=== PATIENT | female | born 1990 | race Caucasian/White ===

== ENCOUNTER 2018-07-27 21:22 | Emergency (ER) | payer MEDICAID ==
[2018-07-27] MEDS: Ketorolac 60 MG/2 ML SDV IM STA (22:31)
--- NOTE | 2018-07-27 22:31 | EDM.PDOC ---
ED HPI GENERAL MEDICAL PROBLEM - General Chief Complaint: Abdominal Pain Stated Complaint: HEAVY BLEEDING AND CRAMPS Time Seen by Provider: 07/27/18 21:22 Source of Information: Reports: Patient, Family History Limitations: Reports: No Limitations - History of Present Illness INITIAL COMMENTS - FREE TEXT/NARRATIVE: 28 y.o.w.galina. came to the ED due to vag bleed (spotting) with pelvic pain, starting this morning 2 weeks after she had a miscarriage and underwent a ultrasound guided D&CC on 07/15/2018 at [facility]. There was no complication during the D&C. No N/V/D, no Trauma. No other acute medical issues. 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 Lower abdomen Pain Score (Numeric/FACES): 7 - Related Data Allergies Allergy/AdvReac Type Severity Reaction Status Date / Time benzonatate Allergy Anaphylactic Verified 12/03/15 12:50 [From Tesdania Bailey] Shock fluoxetine [From Prozac] Allergy Airway Verified 07/27/18 21:30 Tightness morphine Allergy Vomiting Verified 11/15/15 18:27 Home Meds: Home Meds Gabapentin 600 mg PO DAILY 04/26/15 [History] Ziprasidone HCl [Geodon] 60 mg PO BEDTIME 04/26/15 [History] Triamcinolone Acetonide [Triamcinolone Acetonide 0.1% Crm] 1 applic TOP TID PRN 05/16/15 [History] clonazePAM [Klonopin] 0.25 mg PO BID PRN 12/03/15 [History] Hydrocodone/Acetaminophen [[place] 5-325] 1 tab PO ASDIRECTED PRN 01/18/16 [ History] Clindamycin HCl [Cleocin] 300 mg BID 07/27/18 [History] Methylphenidate [Concerta] 54 mg DAILY 07/27/18 [History] Methylphenidate [Concerta] 54 mg PO DAILY 07/27/18 [History] Past Medical History - Past Health History Medical/Surgical History: Denies Medical/Surgical History Respiratory History: Reports: Asthma Other Respiratory History: pt states was diagnosed with asthma as a kid but was never on any medication. 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: Endometrial Ablation, Endometriosis, Musculoskeletal History: Reports: Fracture Other Musculoskeletal History: hx fx L wrist Neurological History: Reports: Migraines Psychiatric History: Reports: Anxiety, Bipolar, Panic Attack, Psych Hospitalization(s), PTSD, Suicide Attempt Dermatologic History: Reports: Eczema - Infectious Disease History Infectious Disease History: Reports: Chicken Pox - Past Surgical History HEENT Surgical History: Reports: Oral Surgery GI Surgical History: Reports: Appendectomy, Colonoscopy Female Surgical History: Reports: Cervical Conization, Cervical Cryotherapy, D&C, Dilitation & Evacuation, Endometrial Ablation, Other (See Below) Other Female Surgeries/Procedures: [id number] Musculoskeletal Surgical History: Reports: None Social & Family History - Family History Family Medical History: Noncontributory - Tobacco Use Smoking Status *Q: Current Every Day Smoker Years of Tobacco use: 10 Packs/Tins Daily: 1 - Caffeine Use Caffeine Use: Reports: Coffee, Soda - Recreational Drug Use Recreational Drug Use: No ED ROS GENERAL - Review of Systems Review Of Systems: See Below Constitutional: Reports: No Symptoms HEENT: Reports: No Symptoms Respiratory: Reports: No Symptoms Cardiovascular: Reports: No Symptoms Endocrine: Reports: No Symptoms GI/Abdominal: Reports: No Symptoms : Reports: Pain, Other (Vag bleed) Musculoskeletal: Reports: No Symptoms Skin: Reports: No Symptoms Neurological: Reports: No Symptoms Psychiatric: Reports: No Symptoms Hematologic/Lymphatic: Reports: No Symptoms Immunologic: Reports: No Symptoms ED EXAM - Physical Exam Exam: See Below General Appearance: Alert, WD/WN, Mild Distress Eye Exam: Bilateral Eye: Normal Inspection Ears: Normal External Exam Nose: Normal Inspection Throat/Mouth: Normal Inspection, Normal Lips, Normal Voice, No Airway Compromise Head: Atraumatic, Normocephalic Neck: Normal Inspection, Supple, Non-Tender, Full Range of Motion Respiratory/Chest: No Respiratory Distress, Lungs Clear, Normal Breath Sounds, Chest Non-Tender Cardiovascular: Normal Peripheral Pulses Course - Vital Signs Text/Narrative:: 28 y.o.w.f. came to the ED due to vag bleed (spotting) with pelvic pain, starting this morning 2 weeks after she had a miscarriage and underwent a ultrasound guided D&CC on 07/15/2018 at [facility]. There was no complication during the D&C. No N/V/D, no Trauma. No other acute medical issues. BP 126/61 Pulse 81 RR 18 Pulse ox 100% on RA Temp 36.1 PE: WNWD F W F in with Vag spotting and pelvic pain 2 weeks after a D&C Imaging: U/S not available Labs: CBC. BMP Nl HCG 507 Impression: Vaginal Bleed after D&C Tx: Toradol 60 mg im 10.28 pm Consultation: Dr. Jenkins, AUTOMATIC MACHINE ATTENDANT [facility]: D&C bleed after the procedure up to 4 weeks. As long the bleed is not longer/stronger then a period , nothing to worry about. Motrin for pain is fine Reexam: Pain subsided and so did the vag spotting Plan: D/C with instructions Last Recorded V/S: Last Vital Signs Temp 36.9 C 07/27/18 21:26 Pulse 78 07/27/18 22:55 Resp 18 07/27/18 22:55 BP 106/53 L 07/27/18 22:55 Pulse Ox 99 07/27/18 22:55 - Orders/Labs/Meds Labs: Laboratory Tests 07/27/18 07/27/18 07/27/18 Range/Units 22:00 22:00 22:00 WBC 9.9 (4.5-12.0) X10-3/uL RBC 4.53 (3.23-5.20) x10(6)uL Hgb 13.8 (11.5-15.5) g/dL Hct 39.7 (30.0-51.3) % MCV 87.6 (80-96) fL MCH 30.5 (27.7-33.6) pg MCHC 34.8 (32.2-35.4) g/dL RDW 11.9 (11.5-15.5) % Plt Count 254 (125-369) X10(3)uL MPV 7.2 L (7.4-10.4) fL Neut % (Auto) 57.5 (46-82) % Lymph % (Auto) 33.1 (13-37) % [place] % (Auto) 8.2 (4-12) % Eos % (Auto) 1 (1.0-5.0) % Baso % (Auto) 0 (0-2) % Neut # (Auto) 5.7 (1.6-8.3) # Lymph # (Auto) 3.3 (0.6-5.0) # [place] # (Auto) 0.8 (0.0-1.3) # Eos # (Auto) 0.1 (0.0-0.8) # Baso # (Auto) 0.0 (0.0-0.2) # PT 9.9 (8.7-11.1) INR 1.02 (0.89-1.13) Sodium (135-145) mmol/L Potassium (3.5-5.3) mmol/L Chloride (100-110) mmol/L Carbon Dioxide (21-32) mmol/L BUN (7-18) mg/dL Creatinine (0.55-1.02) mg/dL Est Cr Clr Drug Dosing mL/min Estimated GFR (MDRD) (>60) BUN/Creatinine Ratio (9-20) Glucose (80-116) mg/dL Calcium (8.6-10.2) mg/dL HCG, Quant (<5) mIU/mL Urine Color Yellow (YELLOW) Urine Appearance Clear (CLEAR) Urine pH 7.0 H (5.0-6.5) Ur Specific [place] 1.020 (1.010-1.025) Urine Protein Negative (NEGATIVE) mg/dL Urine Glucose (UA) Normal (NEGATIVE) mg/dL Urine Ketones Negative (NEGATIVE) mg/dL Urine Occult Blood Large H (NEGATIVE) Urine Nitrite Negative (NEGATIVE) Urine Bilirubin Negative (NEGATIVE) Urine Urobilinogen Normal (NEGATIVE) mg/dL Ur Leukocyte Esterase Negative (NEGATIVE) Urine RBC >100 H (0) Urine WBC 0-5 (0) Ur Squamous Epith Cells Few H (NS,R,O) Urine Bacteria Few H (NS) Urine Mucus Few H (NS) 07/27/18 07/27/18 Range/Units 22:00 22:00 WBC (4.5-12.0) X10-3/uL RBC (3.23-5.20) x10(6)uL Hgb (11.5-15.5) g/dL Hct (30.0-51.3) % MCV (80-96) fL MCH (27.7-33.6) pg MCHC (32.2-35.4) g/dL RDW (11.5-15.5) % Plt Count (125-369) X10(3)uL MPV (7.4-10.4) fL Neut % (Auto) (46-82) % Lymph % (Auto) (13-37) % [place] % (Auto) (4-12) % Eos % (Auto) (1.0-5.0) % Baso % (Auto) (0-2) % Neut # (Auto) (1.6-8.3) # Lymph # (Auto) (0.6-5.0) # [place] # (Auto) (0.0-1.3) # Eos # (Auto) (0.0-0.8) # Baso # (Auto) (0.0-0.2) # PT (8.7-11.1) INR (0.89-1.13) Sodium 140 (135-145) mmol/L Potassium 3.6 (3.5-5.3) mmol/L Chloride 104 (100-110) mmol/L Carbon Dioxide 26 (21-32) mmol/L BUN 9 (7-18) mg/dL Creatinine 0.5 L (0.55-1.02) mg/dL Est Cr Clr Drug Dosing 150.73 mL/min Estimated GFR (MDRD) > 60 (>60) BUN/Creatinine Ratio 18.0 (9-20) Glucose 94 (80-116) mg/dL Calcium 8.8 (8.6-10.2) mg/dL HCG, Quant 507 (<5) mIU/mL Urine Color (YELLOW) Urine Appearance (CLEAR) Urine pH (5.0-6.5) Ur Specific [place] (1.010-1.025) Urine Protein (NEGATIVE) mg/dL Urine Glucose (UA) (NEGATIVE) mg/dL Urine Ketones (NEGATIVE) mg/dL Urine Occult Blood (NEGATIVE) Urine Nitrite (NEGATIVE) Urine Bilirubin (NEGATIVE) Urine Urobilinogen (NEGATIVE) mg/dL Ur Leukocyte Esterase (NEGATIVE) Urine RBC (0) Urine WBC (0) Ur Squamous Epith Cells (NS,R,O) Urine Bacteria (NS) Urine Mucus (NS) Meds: Medications Discontinued Medications Generic Name Dose Route Start Last Admin Trade Name Shay PRN Reason Stop Dose Admin Ketorolac Tromethamine 60 mg 07/27/18 22:25 07/27/18 22:31 Toradol IM 07/27/18 22:26 60 mg ONETIME STA Administration Departure - Departure Time of Disposition: 23:00 Disposition: Home, Self-Care 01 Condition: Good Clinical Impression: Vaginal bleeding - Discharge Information Instructions: Ketorolac injection, Abnormal Uterine Bleeding, [id number] Referrals: Nan Hawk NP [Primary Care Provider] - Forms: ED Department Discharge Additional Instructions: Please continue Motrin for pain, please follow up as needed, come back if your symptoms get worse acutely.
[2018-07-27 22:56] VITALS: BP 106/53
== END 2018-07-27 23:04 | disposition home or self-care (01) ==
LOC: FB.ED 21:22
DX: O03.6 Delayed or excessive hemorrhage following complete or unspecified spontaneous abortion (principal); J45.909 Unspecified asthma, uncomplicated; F31.9 Bipolar disorder, unspecified; F41.9 Anxiety disorder, unspecified; F17.210 Nicotine dependence, cigarettes, uncomplicated; Z88.8 Allergy status to other drugs, medicaments and biological substances; Z88.5 Allergy status to narcotic agent
CPT/HCPCS: 36415; 80048; 81001; 84702; 85025; 85610; 96372; 99284; J1885

== ENCOUNTER 2018-07-30 12:15 | Emergency (ER) | payer MEDICAID ==
--- NOTE | 2018-07-30 12:40 | EDM.PDOC ---
ED HPI GENERAL MEDICAL PROBLEM - General Chief Complaint: MECHANICS HANDYMAN Problem Stated Complaint: POST D AND C BLEEDING Time Seen by Provider: 07/30/18 12:15 Source of Information: Reports: Patient, Family History Limitations: Reports: No Limitations - History of Present Illness INITIAL COMMENTS - FREE TEXT/NARRATIVE: 28 y.o.w.f came to the ed because of vag bleed and pelvic pain. Pt was seen for same a few days ago by me. Pt underwent a D&C on Jun at [facility] because of a miscarriage. in the past few days, pt had spotting and pelvic pain, motrin helped the vag bleed and the pain. [facility] was consulted Please see my note from a few days ago. Pt came today to the ed again, because her vag bleed was worse then a menstrual period, passing blood clots as well. Motrin helped her pain and vag bleed. Her symptoms improve in supine position. 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 No other acute medical issues. BP 124/64 RR 18 Pulse ox 97% on RA Puls 109, Temp 36.8 Onset Date: 07/30/18 Onset Time: 07:00 Duration: Hour(s):, Getting Worse, Intermittent Location: Reports: Pelvis Quality: Reports: Dull, Same as Previous Episode Severity: Moderate Improves with: Reports: Rest Worsens with: Reports: Movement Context: Reports: Other (D&C on 07/15/2018) Associated Symptoms: Reports: No Other Symptoms LOWER ABDOMINAL PAIN RADIATING TO THE BACK Pain Score (Numeric/FACES): 6 - Related Data Allergies Allergy/AdvReac Type Severity Reaction Status Date / Time benzonatate Allergy Anaphylactic Verified 07/30/18 13:11 [From Tessalon Perlsindi] Shock fluoxetine [From Prozac] Allergy Airway Verified 07/30/18 13:11 Tightness morphine Allergy Vomiting Verified 07/30/18 13:11 Home Meds: Home Meds Gabapentin 600 mg PO DAILY 04/26/15 [History] Ziprasidone HCl [Geodon] 60 mg PO BEDTIME 04/26/15 [History] Triamcinolone Acetonide [Triamcinolone Acetonide 0.1% Crm] 1 applic TOP TID PRN 05/16/15 [History] clonazePAM [Klonopin] 0.25 mg PO BID PRN 12/03/15 [History] Hydrocodone/Acetaminophen [[place] 5-325] 1 tab PO ASDIRECTED PRN 01/18/16 [ History] Clindamycin HCl [Cleocin] 300 mg BID 07/27/18 [History] Methylphenidate [Concerta] 54 mg PO DAILY 07/27/18 [History] Past Medical History - Past Health History Medical/Surgical History: Denies Medical/Surgical History Respiratory History: Reports: Asthma Other Respiratory History: pt states was diagnosed with asthma as a kid but was never on any medication. 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: Endometrial Ablation, Endometriosis, Musculoskeletal History: Reports: Fracture Other Musculoskeletal History: hx fx L wrist Neurological History: Reports: Migraines Psychiatric History: Reports: Anxiety, Bipolar, Panic Attack, Psych Hospitalization(s), PTSD, Suicide Attempt Dermatologic History: Reports: Eczema - Infectious Disease History Infectious Disease History: Reports: Chicken Pox - Past Surgical History HEENT Surgical History: Reports: Oral Surgery GI Surgical History: Reports: Appendectomy, Colonoscopy Female Surgical History: Reports: Cervical Conization, Cervical Cryotherapy, D&C, Dilitation & Evacuation, Endometrial Ablation, Other (See Below) Other Female Surgeries/Procedures: [id number] Musculoskeletal Surgical History: Reports: None Social & Family History - Family History Family Medical History: Noncontributory - Caffeine Use Caffeine Use: Reports: Coffee, Soda ED ROS GENERAL - Review of Systems Review Of Systems: See Below Constitutional: Reports: No Symptoms HEENT: Reports: No Symptoms Respiratory: Reports: No Symptoms Cardiovascular: Reports: No Symptoms Endocrine: Reports: No Symptoms GI/Abdominal: Reports: No Symptoms : Reports: Other (vag bleed) Musculoskeletal: Reports: No Symptoms Skin: Reports: No Symptoms Neurological: Reports: No Symptoms Psychiatric: Reports: No Symptoms Hematologic/Lymphatic: Reports: No Symptoms Immunologic: Reports: No Symptoms ED EXAM - Physical Exam Exam: See Below Exam Limited By: No Limitations General Appearance: Alert, WD/WN, Mild Distress Eye Exam: Bilateral Eye: Normal Inspection Ears: Normal External Exam, Normal Canal Nose: Normal Inspection, Normal Mucosa Throat/Mouth: Normal Inspection, Normal Lips, Normal Teeth, Normal Gums, Normal Voice, No Airway Compromise Head: Atraumatic, Normocephalic Neck: Normal Inspection, Supple, Non-Tender, Full Range of Motion Respiratory/Chest: No Respiratory Distress, Lungs Clear, Normal Breath Sounds, No Accessory Muscle Use, Chest Non-Tender Cardiovascular: Normal Peripheral Pulses, Regular Rate, Rhythm, No Edema, No Gallop, No Murmur, No Rub GI/Abdominal Exam: Normal Bowel Sounds, Soft, Non-Tender, No Organomegaly, No Distention, No Abnormal Bruit, No Mass, Pelvis Stable Rectal Exam: Deferred (Female) Exam: Vaginal Bleeding Back Exam: Normal Inspection, Full Range of Motion Extremities: Normal Inspection, Normal Range of Motion, Non-Tender, No Pedal Edema, Normal Capillary Refill Neurological: Alert, Oriented, CN II-XII Intact, Normal Cognition, Normal Gait, Normal Reflexes, No Motor/Sensory Deficits Psychiatric: Normal Affect, Normal Mood Skin Exam: Warm, Dry, Intact, Normal Color, No Rash Lymphatic: No Adenopathy Course - Vital Signs Text/Narrative:: 28 y.o.w.f came to the ed because of vag bleed and pelvic pain. Pt was seen for same a few days ago by me. Pt underwent a D&C on Jun at [facility] because of a miscarriage. in the past few days, pt had spotting and pelvic pain, motrin helped the vag bleed and the pain. [facility] was consulted Please see my note from a few days ago. Pt came today to the ed again, because her vag bleed was worse then a menstrual period, passing blood clots as well. Motrin helped her pain and vag bleed. Her symptoms improve in supine position. 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 No other acute medical issues. BP 124/64 RR 18 Pulse ox 97% on RA Puls 109, Temp 36.8 PE: WNWD W F with vag bleed Pelvod exam showed blood in the vag vault, no active cervical bleed. Imaging: NON OB U/S: Uterus is full of blood, could not see a retained placenta Labs: CBC nl HCG 307 ImpressionL Post D$C vag bleed. Tx: Toradol. Reexam: Improved 12.40 pm Consultation: Dr. Romero, MECHANICS HANDYMAN Robby: HCG. CBC U/S pelvic 3.03 pm Consultation: Dr. Romero, MECHANICS HANDYMAN [facility]: Pt needs second D&C, Pt must make a clinic appointment 3.32 pm Consultation: Dr. Tran. OG/LOGISTICS CLERK will see the patient this friday at [facility] Last Recorded V/S: Last Vital Signs Temp 36.9 C 07/30/18 12:15 Pulse 85 07/30/18 16:00 Resp 18 07/30/18 16:00 BP 129/61 07/30/18 16:00 Pulse Ox 100 07/30/18 16:00 - Orders/Labs/Meds Orders: Active Orders 24 hr Category Date Time Status Pelvis Non OB Ltd [US] Stat Exams 07/30/18 14:39 Taken Transvaginal Non OB [US] Stat Exams 07/30/18 13:34 Taken Labs: Laboratory Tests 07/30/18 07/30/18 07/30/18 Range/Units 12:55 13:00 13:13 WBC 8.0 (4.5-12.0) X10-3/uL RBC 4.18 (3.23-5.20) x10(6)uL Hgb 12.5 (11.5-15.5) g/dL Hct 36.5 (30.0-51.3) % MCV 87.4 (80-96) fL MCH 29.9 (27.7-33.6) pg MCHC 34.3 (32.2-35.4) g/dL RDW 12.0 (11.5-15.5) % Plt Count 223 (125-369) X10(3)uL MPV 7.9 (7.4-10.4) fL Neut % (Auto) 65.8 (46-82) % Lymph % (Auto) 27.3 (13-37) % [place] % (Auto) 5.6 (4-12) % Eos % (Auto) 1 (1.0-5.0) % Baso % (Auto) 1 (0-2) % Neut # (Auto) 5.3 (1.6-8.3) # Lymph # (Auto) 2.2 (0.6-5.0) # [place] # (Auto) 0.4 (0.0-1.3) # Eos # (Auto) 0.1 (0.0-0.8) # Baso # (Auto) 0.0 (0.0-0.2) # HCG, Quant 301 (<5) mIU/mL Urine Color [place] (YELLOW) Urine Appearance Slightly cloudy (CLEAR) Urine pH 8.0 H (5.0-6.5) Ur Specific [place] 1.010 (1.010-1.025) Urine Protein Negative (NEGATIVE) mg/dL Urine Glucose (UA) Normal (NEGATIVE) mg/dL Urine Ketones Negative (NEGATIVE) mg/dL Urine Occult Blood Large H (NEGATIVE) Urine Nitrite Negative (NEGATIVE) Urine Bilirubin Negative (NEGATIVE) Urine Urobilinogen Normal (NEGATIVE) mg/dL Ur Leukocyte Esterase Negative (NEGATIVE) Urine RBC 50-75 H (0) Urine WBC 0-5 (0) Ur Squamous Epith Cells Occasional (NS,R,O) Urine Bacteria Rare H (NS) Meds: Medications Discontinued Medications Generic Name Dose Route Start Last Admin Trade Name Freq PRN Reason Stop Dose Admin Ketorolac Tromethamine 60 mg 07/30/18 13:11 07/30/18 13:19 Toradol IM 07/30/18 13:12 60 mg ONETIME ONE Administration Departure - Departure Time of Disposition: 15:46 Disposition: Home, Self-Care 01 Condition: Good Clinical Impression: Vaginal bleeding - Discharge Information Referrals: Nan Hawk NP [Primary Care Provider] - Forms: ED Department Discharge, ED Return to Work/School Form Additional Instructions: Please take Motrin 600 mg every 6 hours with food. Please see Dr. Tran, OB/ LOGISTICS CLERK this Friday at 12.45 pm.Please come back if your symptoms get worse acutely - My Orders Last 24 Hours: My Active Orders 07/30/18 13:34 Transvaginal Non OB [US] Stat 07/30/18 14:39 Pelvis Non OB Ltd [US] Stat - Assessment/Plan Last 24 Hours: My Active Orders 07/30/18 13:34 Transvaginal Non OB [US] Stat 07/30/18 14:39 Pelvis Non OB Ltd [US] Stat
[2018-07-30] MEDS ORDERED: Ketorolac 60 MG/2 ML SDV IM ONE (13:11)
[2018-07-30 18:17] VITALS: BP 129/61
== END 2018-07-30 16:00 | disposition home or self-care (01) ==
LOC: FB.ED 12:15
DX: O02.9 Abnormal product of conception, unspecified (principal); O08.1 Delayed or excessive hemorrhage following ectopic and molar pregnancy; Z88.5 Allergy status to narcotic agent; Z88.8 Allergy status to other drugs, medicaments and biological substances; Z79.899 Other long term (current) drug therapy
CPT/HCPCS: 36415; 76830; 76857; 81001; 84702; 85025; 96372; 99284; J1885

== ENCOUNTER 2024-04-03 07:44 | Emergency (ER) | payer MEDICAID ==
[2024-04-03 09:28] VITALS: BP 119/71; PULSE 84
== END 2024-04-03 08:32 | disposition home or self-care (01) ==
LOC: FB.ED 07:44
DX: S90.121A Contusion of right lesser toe(s) without damage to nail, initial encounter (principal); E66.9 Obesity, unspecified; Z86.16 Personal history of COVID-19; Z79.899 Other long term (current) drug therapy; Z88.5 Allergy status to narcotic agent; Z88.8 Allergy status to other drugs, medicaments and biological substances; W22.8XXA Striking against or struck by other objects, initial encounter
CPT/HCPCS: 73630-RT; 99283

== ENCOUNTER 2025-06-05 11:24 | Emergency (ER) | payer MEDICAID ==
[2025-06-05] MEDS ORDERED: Sodium Chloride 0.9% 10 ML Syringe FLUSH PRN (11:57)
[2025-06-05 12:15] LABS: BASOPHILS ABSOLUTE AUTO 0.0 x10-3/uL (0.0-0.1); BASOPHILS PERCENT AUTO 0.4 % (0.2-1.5); EOSINOPHILS ABSOLUTE AUTO 0.1 x10-3/uL (0.0-0.8); EOSINOPHILS PERCENT AUTO 1.4 % (0.6-8.1); LYMPHOCYTES ABSOLUTE AUTO 2.1 x10-3/uL (1.0-4.4); LYMPHOCYTES PERCENT AUTO 22.4 % (18.4-52.1); MEAN PLATELET VOLUME 7.3 fL (7.1-12.4); MONOCYTES ABSOLUTE AUTO 0.7 x10-3/uL (0.3-1.0); MONOCYTES PERCENT AUTO 7.5 % (4.4-15.7); NEUTROPHILS ABSOLUTE AUTO 6.3 x10-3/uL (1.5-6.3); NEUTROPHILS PERCENT AUTO 68.3 % (30.8-76.2); PLATELET COUNT,PLT 284 x10(3)uL (151-488); RED BLOOD CELL COUNT 4.59 x10(6)uL (3.60-5.20); RED CELL DISTRIBUTION WIDTH 12.6 % (12.3-16.5); WHITE BLOOD CELL COUNT,WBC 9.2 x10-3/uL (3.0-10.3)
[2025-06-05 12:20] LABS: BLOOD UREA NITROGEN,BUN 13 mg/dL (7-18); CARBON DIOXIDE,CO2 27 mmol/L (21-32); CHLORIDE,CL 105 mmol/L (100-110); CREATININE 0.7 mg/dL (0.55-1.02); EST CRCL DRUG DOSING (CG) 101.90 mL/min; ESTIMATED GFR 116 mL/min (>60); GLUCOSE RANDOM 92 mg/dL (80-116); POTASSIUM,K 4.0 mmol/L (3.5-5.3); SODIUM,NA 141 mmol/L (135-145)
[2025-06-05 12:25] LABS: A/G RATIO 1.4; ALANINE AMINOTRANSFERASE,ALT 19 U/L (12-36); ASPARTATE AMNIOTRANSFERASE,AST 12 IU/L (5-25); BILIRUBIN TOTAL 0.7 mg/dL (0.1-1.3); PROTEIN TOTAL,TP 6.6 g/dL (6.0-8.0)
[2025-06-05] MEDS: Iopamidol 755 Mg/ML 100 ML Bottle IV SCH (12:56)
[2025-06-05 13:35] VITALS: BP 118/61; PULSE 76
== END 2025-06-05 13:35 | disposition home or self-care (01) ==
LOC: FB.ED 11:24
DX: B27.90 Infectious mononucleosis, unspecified without complication (principal); R10.12 Left upper quadrant pain; M54.6 Pain in thoracic spine; J45.909 Unspecified asthma, uncomplicated; E66.9 Obesity, unspecified; F17.290 Nicotine dependence, other tobacco product, uncomplicated; Z68.30 Body mass index [BMI] 30.0-30.9, adult; Z88.5 Allergy status to narcotic agent; Z88.8 Allergy status to other drugs, medicaments and biological substances; Z79.899 Other long term (current) drug therapy; Z86.16 Personal history of COVID-19; Z90.49 Acquired absence of other specified parts of digestive tract
CPT/HCPCS: 36415; 74177; 80053; 81025; 83735; 85025; 99284; Q9967